=== PATIENT | female | born 1995 | race African-American/Black ===

== ENCOUNTER 2022-03-01 10:20 | Outpatient (CLI) | payer OTHER, MEDICAID, SELFPAY ==
[2022-03-01 11:43] LABS: HIV 1/2 Ab P24 Ag Result Negative (Negative)
[2022-03-01 11:50] LABS: HAV RESULT Negative (Negative)
[2022-03-01 12:03] LABS: Hepatitis C Virus Antibody Negative (Negative)
[2022-03-03 11:32] LABS: Hepatitis B Surface Antigen Negative (Negative)
[2022-03-03 11:54] LABS: Rapid Plasma Reagin Non-Reactive (NonReactive)
== END 2022-03-01 10:21 | disposition home or self-care (01) ==
PROVIDERS: PCP Internal Medicine Gastroenterology; Visit Provider Obstetrics & Gynecology
DX: A64 Unspecified sexually transmitted disease (principal)
CPT/HCPCS: 36415; 86592; 86703; 86709; 86803; 87340; G0432

== ENCOUNTER 2023-08-10 10:52 | Outpatient (CLI) | payer BC, OTHER, SELFPAY ==
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
--- NOTE | ~2023-08-10 | XR_ITS ---
Right Shoulder Technique: AP and scapular Y views were obtained. Clinical History: Injury Findings: No fracture or dislocation is seen. Osseous alignment is anatomic. The glenohumeral and acr omioclavicular joint spaces are preserved. Soft tissues are unremarkable. Impression: Unremarkable right shoulder radiographs. Reviewed, dictated and finalized at [facility]. Impression: Unremarkable right shoulder radiographs.
== END 2023-08-10 10:53 | disposition home or self-care (01) ==
PROVIDERS: PCP Nurse Practitioner Family; Visit Provider Nurse Practitioner Family
DX: M54.9 Dorsalgia, unspecified (principal); V89.2XXA Person injured in unspecified motor-vehicle accident, traffic, initial encounter; R07.81 Pleurodynia; M25.511 Pain in right shoulder
CPT/HCPCS: 71100; 72100; 73030